=== PATIENT | male | born 1980 | race Two or more races ===

== ENCOUNTER 2021-05-04 11:40 | Inpatient (IN) | payer SELFPAY ==
[~2021-05-04] VITALS: Ht 154.9 cm; Wt 56.7 kg
--- NOTE | 2021-05-04 11:40 | NUR ---
PT BIBRA [address] C/O VOMITING OF BLOOD THIS AM. +ALCOHOL INTAKE LAST NIGHT. PT IS AAOX4, NOT IN RESPIRATORY DISTRESS, HOOKED TO MATCHBOOK MAKER, KEPT RESTED AND COMFORTABLE. WILL CONTINUE TO MONITOR.
--- NOTE | 2021-05-04 11:50 | NUR ---
SEEN AND EXAMINED BY .
--- NOTE | 2021-05-04 11:53 | NUR ---
IV LINE ESTABLISHED BLOOD DRAWN AND SENT TO LAB.
[2021-05-04] MEDS ORDERED: PANTOPRAZOLE 40 MG VIAL ONE (11:54)
[2021-05-04] MEDS ORDERED: LORAZEPAM INJ 2 MG/ML VIAL ONE (11:54)
[2021-05-04] MEDS ORDERED: ONDANSETRON HCL/PF 4 MG/2 ML VIAL ONE (11:54)
[2021-05-04] MEDS ORDERED: Thiamine 100 MG in IV D5W 50 ML IV ONE (12:00)
[2021-05-04] MEDS ORDERED: LORAZEPAM INJ 2 MG/ML VIAL IV ONE (12:00)
[2021-05-04] MEDS ORDERED: IV NS 0.9% 1,000 ML BAG IV ONE (12:00)
[2021-05-04] MEDS ORDERED: ONDANSETRON HCL/PF 4 MG/2 ML VIAL IVP ONE (12:00)
[2021-05-04] MEDS ORDERED: PANTOPRAZOLE 40 MG VIAL IV ONE (12:00)
[2021-05-04 12:06] LABS: BASOPHILS % (AUTO) 0.7 % (0.0-2.0); HEMATOCRIT 42 % (39-51); HEMOGLOBIN 14.4 g/dL (13.5-17.5); LYMPHOCYTES # (AUTO) 0.8 /CMM (0.8-4.8); LYMPHOCYTES % (AUTO) 17.6 % (20.0-44.0); MEAN CORPUSCULAR HGB CONC 34 g/dl (31.0-36.0); MEAN CORPUSCULAR VOLUME 88 fL (80-96); MONOCYTES # (AUTO) 0.2 /CMM (0.1-1.30); MONOCYTES % (AUTO) 5.6 % (2.0-12.0); NEUTROPHILS # (AUTO) 3.4 /CMM (1.8-8.9); NEUTROPHILS % (AUTO) 76.1 % (43.0-81.0); PLATELET COUNT (AUTO) 57 /CMM (150-450); RED BLOOD CELL COUNT(AUTO) 4.78 MIL/uL (4.5-6.0); WHITE BLOOD COUNT (AUTO) 4.4 K/uL (4.3-11.0)
--- NOTE | 2021-05-04 12:06 | NUR ---
FOOD TRAY PROVIDED.
[2021-05-04 12:34] LABS: CREATININE 0.8 mg/dL (0.6-1.3); POTASSIUM 3.8 mmol/L (3.5-5.1)
[2021-05-04] MEDS ORDERED: IOHEXOL-300 100 ML VIAL IV ONE (12:42)
[2021-05-04] MEDS ORDERED: CT SWABBABLE VALVE TRANS SET 1 EA INFUS.SET MC ONE (12:42)
[2021-05-04] MEDS ORDERED: IV NS 0.9% 250 ML IV ONE (12:42)
[2021-05-04 12:43] LABS: BILIRUBIN,DIRECT 2.2 mg/dL (0.0-0.2); BILIRUBIN,TOTAL 3.5 mg/dL (0.2-1.0); TOTAL PROTEIN, SERUM 9.5 g/dL (6.4-8.2)
--- NOTE | 2021-05-04 12:51 | NUR ---
PT IS WHEELED TO CT SCAN VIA [facility].
--- NOTE | 2021-05-04 13:47 | NUR ---
GOT BED 110
--- NOTE | 2021-05-04 13:59 | NUR ---
REPORT GIVEN TO RN SOON FOR NESTOR.
--- NOTE | 2021-05-04 14:20 | NUR ---
RN NOTE EGYPTIAN SPEAKING PT, A/Ox3, ARRIVED IN UNIT VIA GURNEY, PT ABLE TO STAND AND PIVOT WITH 1 PERSON ASSIST TO BED, GAIT UNSTEADY. PT BREATHING RA SPO2 93%, NO S/S OF RESP DISTRESS OR SOB, BREATHING EVEN AND UNLABORED. PT C/O 7/10 PAIN ON RT SIDE OF ABD. PT HAS LAC IV ACCESS, FLUSHED, PATENT AND INTACT, NO SIGNS OF INFECTION/INFILTRATION. PT SKIN INTACT, VITILIGO NOTE THROUGHOUT ENTIRE BODY. ALL SAFETY PRECAUTIONS IN PLACE. WILL CONT TO MONITOR. PT VITALS: TEMP 99.6, HR 113, RESP 20, BP 131/67. Addendum: 05/04/21 at 1716 by PATTIE MICHAEL RN PT PRESENTS WITH TREMORS. BEDSIDE SWALLOW EVAL CONDUCTED AND PASSED, PT HAS NO PROBLEMS SWALLOWING ICE CHIPS, WATER AND MEDS
--- NOTE | 2021-05-04 14:45 | NUR ---
RN NOTE COOLING MEASURES IN PLACE FOR PT TEMP OF 99.6 F
[2021-05-04 15:00] LABS: LYMPHOCYTES % (MANUAL) 20 % (16-48); MONOCYTES % (MANUAL) 5 % (0-11.0); NEUTROPHILS % (MANUAL) 75 (42-76)
[2021-05-04] MEDS ORDERED: ZOLPIDEM TARTRATE 5 MG TABLET PO PRN (15:00)
[2021-05-04] MEDS ORDERED: MAG HYDROX/AL HYDROX/SIMETH 30 ML UDC PO PRN (15:00)
[2021-05-04] MEDS ORDERED: MAGNESIUM HYDROXIDE 30 ML UDC PO PRN (15:00)
[2021-05-04 16:00] VITALS: BP 117/69
[2021-05-04] MEDS: ACETAMINOPHEN 325 MG TABLET PO PRN (16:05)
[2021-05-04] MEDS: CHLORDIAZEPOXIDE HCL 25 MG CAPSULE PO SCH (16:05)
--- NOTE | 2021-05-04 16:05 | NUR ---
RN NOTE PER ADVENTURE EDUCATION TEACHER SALLY MAE TO ADMIN TYLENOL 650MG FOR FEVER
[2021-05-04] MEDS: IV NS 0.9% 1,000 ML IV PRN (16:07)
[2021-05-04] MEDS: ONDANSETRON HCL/PF 4 MG/2 ML VIAL IVP PRN (17:48)
--- NOTE | 2021-05-04 18:00 | NUR ---
RN NOTE PT TEMP NOW 99.0
--- NOTE | 2021-05-04 19:10 | NUR ---
RN NOTE RECEIVED PATIENT IN BED RESTING ALERT ORIENTED X3 VERBALLY RESPONSIVE ON ROOM AIR O2:94% IV SITE IS ON LEFT AC INTACT PATENT IV HYDRATION NS 0.9% 100CC/HR RUNNING CONTINENT TO BOWEL/BLADDER,SAFETY MEASURE IMPLEMENT, CALL LIGHT WITHIN REACH,BED IN LOW POSITION AND LOCKED CONTINUE TO MONITOR.
--- NOTE | 2021-05-04 19:15 | NUR ---
GROCERY STORE MANAGER NOTE PATIENT ON BED AWAKE, ALERT AND ORIENTED X3, BREATHING EVEN AND UNLABORED, ON TELE WITH SR HR OF 75, DUE MEDICATION GIVEN ORDERED,SAFETY MEASURES OBSERVED, NEEDS MET AND ANTICIPATED, WILL CONTINUE TO MONITOR, WILL ENDORSE TO NEXT SHIFT.
[2021-05-04 20:00] VITALS: BP 116/59
[2021-05-05] VITALS: BP 127/64
[2021-05-05] MEDS: IV NS 0.9% 1,000 ML IV PRN ×2 (01:56→21:09)
[2021-05-05 04:56] VITALS: BP 136/78
[2021-05-05] MEDS: HYDROCODONE/APAP 5/325MG TABLET PO PRN ×2 (05:55→21:08)
--- NOTE | 2021-05-05 06:30 | NUR ---
RN NOTE PATIENT COMPLAINED OF ABDOMINAL PAIN UPON ASSESSMENT PATIENT ABDOMINAL DISTENDED,DID BLADDER SCAN AND SHOWED [address] BRADSHAW HE ORDERED INSERT MARTIN CATHETER AFTER INSERTION 750CC URINE COLLECTED AND PATIENT REFUSES TO HAVE MRATIN CATHETER INDWELLING CALLED DR BRADSHAW MADE AWARE.
[2021-05-05 06:33] LABS: BASOPHILS % (AUTO) 0.6 % (0.0-2.0); EOSINOPHILS % (AUTO) 0.6 % (0.0-6.0); HEMATOCRIT 36 % (39-51); HEMOGLOBIN 12.5 g/dL (13.5-17.5); LYMPHOCYTES # (AUTO) 0.7 /CMM (0.8-4.8); LYMPHOCYTES % (AUTO) 22.9 % (20.0-44.0); MEAN CORPUSCULAR HGB CONC 34 g/dl (31.0-36.0); MEAN CORPUSCULAR VOLUME 87 fL (80-96); MONOCYTES # (AUTO) 0.2 /CMM (0.1-1.30); MONOCYTES % (AUTO) 6.9 % (2.0-12.0); NEUTROPHILS # (AUTO) 2.1 /CMM (1.8-8.9); RED BLOOD CELL COUNT(AUTO) 4.17 MIL/uL (4.5-6.0); WHITE BLOOD COUNT (AUTO) 3.1 K/uL (4.3-11.0)
[2021-05-05 06:46] LABS: PLATELET COUNT (AUTO) 44 /CMM (150-450)
--- NOTE | 2021-05-05 06:59 | NUR ---
RN NOTE RECEIVED CRITICAL LAB RESULT PLATELET [address] BRADSHAW NO ORDER AT THIS TIME ENDORSE NEXT COMING SHIFT CONTINUE TO MONITOR.
[2021-05-05 07:11] LABS: THYROID STIMULATING HORMONE 3.948 uIU/mL (0.358-3.74)
--- NOTE | 2021-05-05 07:21 | NUR ---
RN NOTE ENDORSE NEXT COMING SHIFT FOR CONTINUATION OF CARE.
[2021-05-05 07:23] LABS: ALBUMIN 3.1 g/dL (3.4-5.0); BILIRUBIN,DIRECT 1.6 mg/dL (0.0-0.2); BILIRUBIN,TOTAL 2.8 mg/dL (0.2-1.0); CALCIUM, SERUM 8.5 mg/dL (8.5-10.1); CREATININE 0.8 mg/dL (0.6-1.3); MAGNESIUM 1.6 mg/dL (1.8-2.4); PHOSPHORUS 2.1 mg/dL (2.5-4.9); POTASSIUM 3.2 mmol/L (3.5-5.1); TOTAL PROTEIN, SERUM 7.5 g/dL (6.4-8.2)
[2021-05-05 08:00] VITALS: BP 107/60
[2021-05-05] MEDS ORDERED: POTASSIUM PHOSPHATE MM 15 MMOL in IV NS 0.9% 250 ML IV SCH (08:00)
--- NOTE | 2021-05-05 08:01 | NUR ---
WICKER MOLDED CANDLES OPENING NOTE PATIENT IS IN BED RESTING, PATIENT IS IN NO ACUTE DISTRESS. PATIENT IS ON TELE MONITOR READING SR 85. SAFETY PRECAUTIONS ARE ON, BED IS LOCKED IN THE LOWEST POSITION, SIDE RAILS ARE UP, CALL LIGHT WITHIN REACH, WILL CONTINUE TO MONITOR CLOSELY THROUGHOUT THE SHIFT.
[2021-05-05] MEDS: Magnesium 1GM/D5W 100ML PREMIX 100 ML IV SCH ×2 (08:19→09:56)
[2021-05-05] MEDS: CHLORDIAZEPOXIDE HCL 25 MG CAPSULE PO SCH ×2 (08:19→16:09)
[2021-05-05] MEDS: THIAMINE HCL 100 MG TABLET PO SCH (08:19)
[2021-05-05] MEDS: FOLIC ACID 1 MG TABLET PO SCH (08:19)
[2021-05-05] MEDS: MULTIVITAMINS,THERAGRAN 1 UDTAB TABLET PO SCH (08:20)
[2021-05-05] MEDS: PANTOPRAZOLE 40 MG TABLET.DR PO SCH (08:20)
[2021-05-05 08:35] LABS: EOSINOPHILS % (MANUAL) 1 % (0-4); LYMPHOCYTES % (MANUAL) 22 % (16-48); MONOCYTES % (MANUAL) 5 % (0-11.0); NEUTROPHILS % (MANUAL) 72 (42-76)
[2021-05-05] MEDS ORDERED: POTASSIUM CHLORIDE 20 MEQ TAB.PRT.SR PO ONE (09:00)
[2021-05-05] MEDS: POTASSIUM PHOSPHATE MM 7.5 MMOL in IV NS 0.9% 100 ML IV SCH ×2 (09:18→13:30)
[2021-05-05 12:00] VITALS: BP 117/67
[2021-05-05] MEDS: ONDANSETRON HCL/PF 4 MG/2 ML VIAL IVP PRN (12:17)
--- NOTE | 2021-05-05 12:17 | NUR ---
STEWARD/STEWARDESS DINING ROOM NOTE PATIENT IS FEELING NAUSEOUS WITH EMESIS PRESENT, ZOFRAN ADMINISTERED, WILL REASSESS.
[2021-05-05] MEDS ORDERED: KEY,NONCONTROL,TO KEEP IN PYXI 1 EA MC ONE (14:41)
--- NOTE | 2021-05-05 15:00 | NUR ---
LIBRARY CIRCULATION TECHNICIAN NOTE PATIENT HAD A URINE OUTPUT OF 650CC, PATIENT USED URINAL TO URINATE, NO URINARY RETENTION NOTED.
[2021-05-05 18:00] VITALS: BP 118/69
--- NOTE | 2021-05-05 18:45 | NUR ---
OB/GYN DOCTOR CLOSING NOTE PATIENT IS IN BED RESTING, PATIENT IS IN NO ACUTE DISTRESS. PATIENT IS ON TELE MONITOR READING SR 70s. SAFETY PRECAUTIONS ARE ON, BED IS LOCKED IN THE LOWEST POSITION, SIDE RAILS ARE UP, CALL LIGHT WITHIN REACH, ENDORSE PATIENT TO ANCHOR TACK PULLER NURSE FOR NESTOR.
--- NOTE | 2021-05-05 19:45 | NUR ---
MS/RN OPENING NOTE RECEIVED PATIENT RESTING IN BED. AWAKE, ALERT AND ORIENTED X 4. ABLE TO MAKE NEEDS KNOWN. PRIMARILY CHINESE SPEAKING BUT UNDERSTANDS/SPEAKS SOME SUDANESE. NO C/O PAIN AT THIS TIME. CONTINUES ON ROOM AIR WITH NO S/SX OF RESPIRATORY DISTRESS NOTED. IV ACCESS TO LEFT AC #18G INTACT AND PATENT. CONTINUES ON IVF NS @ 100ML/HR. CALL LIGHT WITHIN REACH. ASPIRATION, FALL AND SAFETY PRECAUTIONS MAINTAINED. WILL CONTINUE TO MONITOR.
[2021-05-05 20:00] VITALS: BP 113/71
--- NOTE | 2021-05-05 21:00 | NUR ---
MS/RN NOTE PATIENT WITH C/O ABDOMINAL PAIN 05/30. ADMINISTERED PRN NORCO WITH PENDING EFFECT. WILL CONTINUE TO MONITOR.
[2021-05-06] MEDS: HYDROCODONE/APAP 5/325MG TABLET PO PRN (02:25)
--- NOTE | 2021-05-06 06:30 | NUR ---
MS/RN CLOSING NOTE PATIENT CURRENTLY RESTING IN BED. AWAKE, ALERT AND ORIENTED X 4. ABLE TO MAKE NEEDS KNOWN. PRIMARILY JAPANESE SPEAKING BUT UNDERSTANDS/SPEAKS SOME BELARUSIAN. NO C/O PAIN AT THIS TIME. CONTINUES ON ROOM AIR WITH NO S/SX OF RESPIRATORY DISTRESS NOTED. IV ACCESS TO LEFT AC #18G INTACT AND PATENT. CONTINUES ON IVF NS @ 100ML/HR. CALL LIGHT WITHIN REACH. ASPIRATION, FALL AND SAFETY PRECAUTIONS MAINTAINED. WILL ENDORSE PLAN OF CARE TO ONCOMING SHIFT.
[2021-05-06 06:33] LABS: BASOPHILS % (AUTO) 0.4 % (0.0-2.0); EOSINOPHILS % (AUTO) 0.5 % (0.0-6.0); HEMATOCRIT 39 % (39-51); HEMOGLOBIN 13.3 g/dL (13.5-17.5); LYMPHOCYTES # (AUTO) 0.7 /CMM (0.8-4.8); LYMPHOCYTES % (AUTO) 17.1 % (20.0-44.0); MEAN CORPUSCULAR HGB CONC 35 g/dl (31.0-36.0); MEAN CORPUSCULAR VOLUME 88 fL (80-96); MONOCYTES # (AUTO) 0.3 /CMM (0.1-1.30); MONOCYTES % (AUTO) 6.3 % (2.0-12.0); NEUTROPHILS # (AUTO) 3.2 /CMM (1.8-8.9); NEUTROPHILS % (AUTO) 75.7 % (43.0-81.0); WHITE BLOOD COUNT (AUTO) 4.2 K/uL (4.3-11.0)
[2021-05-06] MEDS: IV NS 0.9% 1,000 ML IV PRN ×2 (06:34→22:54)
[2021-05-06 06:41] LABS: PLATELET COUNT (AUTO) 40 /CMM (150-450)
--- NOTE | 2021-05-06 06:55 | NUR ---
MS/RN NOTE LAB CALLED WITH CRITICAL LAB VALUE OF PLATELET 40. PLACED CALL TO ON-CALL MD CRUZ. AWAITING CALL BACK. WILL ENDORSE TO AM SHIFT RN.
[2021-05-06 07:21] LABS: CALCIUM, SERUM 8.8 mg/dL (8.5-10.1); CREATININE 0.6 mg/dL (0.6-1.3); MAGNESIUM 1.8 mg/dL (1.8-2.4); PHOSPHORUS 2.3 mg/dL (2.5-4.9)
--- NOTE | 2021-05-06 07:30 | NUR ---
RN OPENING NOTE PT A/Ox3/3 IN BED SEMIOWLER'S ON RA SPO2 96% NO S/S OF RESP DISTRESS OR SOB. PT DENIES PAIN AT THIS MOMENT. PT CAN AMBULATE WITH ASSISTANCE, GAIT UNSTEADY. SKIN INTACT, VITILIGO NOTED THROUGHOUT BODY. PT LAC #18 CURRENTLY INFUSING NS 100 ML/HR, FLUSHED, PATENT AND INTACT. ALL PT SAFETY PRECAUTIONS AND SZ PRECAUTIONS IN PLACE, WILL CONT TO MONITOR Addendum: 05/06/21 at 1250 by PATTIE MICHAEL RN PT TREMORS NOTED
[2021-05-06 07:40] LABS: POTASSIUM 2.8 mmol/L (3.5-5.1)
--- NOTE | 2021-05-06 08:00 | NUR ---
RN NOTE DR BRAVO AWARE OF PT PLT 40, K+ 2.8
[2021-05-06] MEDS: FOLIC ACID 1 MG TABLET PO SCH (08:34)
[2021-05-06] MEDS: CHLORDIAZEPOXIDE HCL 25 MG CAPSULE PO SCH ×2 (08:34→16:19)
[2021-05-06] MEDS: MULTIVITAMINS,THERAGRAN 1 UDTAB TABLET PO SCH (08:34)
[2021-05-06] MEDS: THIAMINE HCL 100 MG TABLET PO SCH (08:34)
[2021-05-06] MEDS: PANTOPRAZOLE 40 MG TABLET.DR PO SCH (08:34)
[2021-05-06] MEDS ORDERED: POTASSIUM PHOSPHATE MM 15 MMOL in IV NS 0.9% 250 ML IV SCH (09:00)
[2021-05-06] MEDS ORDERED: POTASSIUM CHLORIDE 20 MEQ TAB.PRT.SR PO ONE (09:00)
[2021-05-06] MEDS: POTASSIUM PHOSPHATE MM 7.5 MMOL in IV NS 0.9% 100 ML IV SCH ×2 (10:00→13:37)
--- NOTE | 2021-05-06 10:30 | NUR ---
RN N OTE PT VOMITTED APPROX 20ML. NO BLOOD NOTED. PT STABLE AND OK NOW. ASPIRATION PRECAUTIONS IN PLACE. PT ABLE TO EAT, SWALLOW AND DRINK FLUIDS WITHOUT ISSUES
[2021-05-06 11:55] VITALS: BP 116/71
--- NOTE | 2021-05-06 15:51 | NUR ---
Continuity Reader note: transportation services representative consult request received for homelessness. SS will follow up at a later time.
[2021-05-06 16:00] VITALS: BP 112/66
[2021-05-06] MEDS: ACETAMINOPHEN 325 MG TABLET PO PRN (18:10)
--- NOTE | 2021-05-06 18:38 | NUR ---
RN CLOSING NOTE PT IN STABLE CONDITION, NO CHANGES DURING SHIFT. ONE EMESIS EPISODE, NO BLOOD NOTED. NO NAUSEA CURRENTLY, TYLENOL 650MG GIVEN FOR MARCELO. ALL PT SAFETY AND SZ PRECAUTIONS IN PLACE. PT K+ REPLACED TODAY. CONT AGGRESSIVE IV FLUID HYDRATION. WILL ENDORSE NESTOR TO ONCOMING RN
[2021-05-06 20:00] VITALS: BP 110/77
--- NOTE | 2021-05-06 20:14 | NUR ---
RN NOTE PATIENT ALERT AND ORIENTEDX3, ABLE TO MAKE NEEDS KNOWN. ON ROOM AIR, O2 SAT 97%. NO SIGNS OF RESPIRATORY DISTRESS. NO SIGNS OF DISCOMFORT AT THIS TIME. WITH LEFT AC #18 RUNNING NS @ 100ML/HR. NO SIGNS OF ANY INFILTRATION. BED LOCKED AND IN LOWEST POSITION. CALL LIGHT WITHIN REACH. ALL NEEDS ANTICIPATED.
[2021-05-07 04:00] VITALS: BP 116/70
[2021-05-07 06:39] LABS: CALCIUM, SERUM 9.2 mg/dL (8.5-10.1); CREATININE 0.6 mg/dL (0.6-1.3); MAGNESIUM 1.9 mg/dL (1.8-2.4); PHOSPHORUS 3.1 mg/dL (2.5-4.9); POTASSIUM 3.7 mmol/L (3.5-5.1)
--- NOTE | 2021-05-07 06:59 | NUR ---
RN NOTE PATIENT ALERT AND ORIENTEDX3. ON ROOM AIR, O2 SAT 97%. NO SIGNS OF RESPIRATORY DISTRESS. LEFT AC #18 RUNNING NS @ 100ML/HR. NO SIGNS OF ANY INFILTRATION. ALL NEEDS ATTENDED PROMPTLY. BED LOCKED AND IN LOWEST POSITION. CALL LIGHT WITHIN REACH. WILL ENDORSE TO AM SHIFT.
[2021-05-07 07:08] LABS: BASOPHILS % (AUTO) 0.6 % (0.0-2.0); EOSINOPHILS % (AUTO) 0.8 % (0.0-6.0); HEMATOCRIT 40 % (39-51); HEMOGLOBIN 13.6 g/dL (13.5-17.5); LYMPHOCYTES # (AUTO) 0.8 /CMM (0.8-4.8); LYMPHOCYTES % (AUTO) 12.4 % (20.0-44.0); MEAN CORPUSCULAR HGB CONC 34 g/dl (31.0-36.0); MEAN CORPUSCULAR VOLUME 89 fL (80-96); MONOCYTES # (AUTO) 0.4 /CMM (0.1-1.30); MONOCYTES % (AUTO) 6.8 % (2.0-12.0); NEUTROPHILS # (AUTO) 5.1 /CMM (1.8-8.9); NEUTROPHILS % (AUTO) 79.4 % (43.0-81.0); PLATELET COUNT (AUTO) 51 /CMM (150-450); RED BLOOD CELL COUNT(AUTO) 4.49 MIL/uL (4.5-6.0); WHITE BLOOD COUNT (AUTO) 6.4 K/uL (4.3-11.0)
--- NOTE | 2021-05-07 07:30 | NUR ---
MS RN AM NOTE PT IN BED, AOX3, SEMIFOWLER'S, ON RA O2 SAT AT 97%, NO S/S OF RESP DISTRESS OR SOB. RESPIRATION UNLABORED. PT DENIES PAIN AT THIS MOMENT. SLIGHT TREMORS NOTED, PT LAC #18 CURRENTLY INFUSING NS 100 ML/HR, SITE CLEAR. PT CAN AMBULATE WITH ASSISTANCE, GAIT UNSTEADY. SKIN INTACT, VITILIGO NOTED THROUGHOUT BODY. DISCUSSED POC, VERBALIZED UNDERSTANDING. ALL PT SAFETY PRECAUTIONS AND SZ PRECAUTIONS IN PLACE, WILL CALL LIGHT WITHIN REACH, WILL CONT TO MONITOR
[2021-05-07] MEDS: PANTOPRAZOLE 40 MG TABLET.DR PO SCH (07:58)
[2021-05-07 08:00] VITALS: BP 124/70
[2021-05-07] MEDS: FOLIC ACID 1 MG TABLET PO SCH (08:00)
[2021-05-07] MEDS: CHLORDIAZEPOXIDE HCL 25 MG CAPSULE PO SCH (08:00)
[2021-05-07] MEDS: THIAMINE HCL 100 MG TABLET PO SCH (08:00)
[2021-05-07] MEDS: MULTIVITAMINS,THERAGRAN 1 UDTAB TABLET PO SCH (08:00)
[2021-05-07] MEDS ORDERED: THIA100T88 PO (08:19)
[2021-05-07] MEDS ORDERED: FOLI0.8T3 PO (08:19)
--- NOTE | 2021-05-07 09:30 | NUR ---
RN NOTES DUE MEDS GIVEN
[2021-05-07 12:00] VITALS: BP 107/71
--- NOTE | 2021-05-07 12:42 | NUR ---
"SS Consult: SS Consult requested for ETOH & homelessness. The pt. is a 40 year old Swazi male. SW met with pt. bedside & pt. is A&O X 4. Pt. stated that he has been homeless for about 4-5 months since arriving to [place] from [place] and is an also alcoholic (drinks vodka, tequila & beer as much as he can afford). SW offered pt. rehab placement. Pt. stated that he will have [facility] in 3 weeks and will seek Tx for ETOH abuse then. SW provided pt. with Addiction resources and pt. accepted them. Patient states he has a 14-year-old son here who he wanted custody of. Pt. states most of his family is in [place]. Pt.s mood is anxious. Pt. stated he has never seen a psychiatrist or received mental health Tx. Patient states he experiences intermittent auditory and visual hallucinations that tell him to drink or get in fights. Pt. states he phu with the voices by listening to music and drinking. SW educated pt. regarding positive coping mechanisms and encouraged him to seek psychiatric/ mental health Tx. Pt. is agreeable. SW provided pt. with mental health resources and pt. accepted them. Plan: Pt. stated he has been living at [facility] [[address] [facility] [address]; [phone]] for the last 3 months and just called as his belongings are there and they will take him back. Pt. wants to return there once discharged. SW offered pt. bus pass and pt. stated busses are still free and does not need bus pass. Patient signed homeless waiver & it was placed in the pt.s chart. STEPH provided pt. with the following homeless resources, addiction resources & mental health resources & pt. accepted them: Substance Abuse resources provided included: [facility] Substance Abuse Self-Helpline (SAS) ; CRI -HELP [address] [facility]. [place] [phone] ; [facility] [address] [facility] [address] ; [facility] [address] [facility] [address] ; [facility] [address] [facility] [address] ; [facility] Treatment [facility] [address] Ron Thompsonshawna [facility] [address] ; [facility] [address] [facility] [phone] ; [facility] Substance Abuse Helpline([facility] ; [facility] ; [facility]; [facility]; C[facility]Help [place]; [facility] Ron [place]; [facility]; [place] Spe[facility] [place]; [facility]; [facility], [facility]. [place]; Alcoholics Anonymous -SFV; An-Lyyi-Klilqdn ; Marijuana Anonymous -SFV; Narcotics Anonymous www.na.org; Year-round shelters: [facility] [place] [address] [place] [address] ; [facility] [place] [address] [place] [address]; [place] [facility] Xegtrsm9902 [facility] [id number] Winter Shelters: Radha [place] Provider: [facility] Address: [address] [place], [address] # of Beds: 47 Population Served: [facility] 6 | [facility] Adalgisa Zamora Rhianna Provider: [facility] Address: [address] [place] [address], [address] # of Beds: 66 Population Served: Farida Hernándezise Rhianna Provider: [facility] Address: [id number] [place] [address], [address] # of Beds: 56 Population Served: Coed [place] Provider: /[facility]. [facility] Address: [address] [facility], [address] # of Beds: 49 Population Served: Coed SPA 8 | [facility] Provider: [facility] Address: [address] [facility] [place], [address] # of Beds: 37 Population Served: Coed Hygiene: [facility]: [address] John [address] [place] ; [facility] [address] [facility] ; [facility] 5845 [facility] . Food Resources: [place] [facility] at [facility]- 5700 [facility]; Meet Each Need with Dignity ([facility]) [address] [facility]; [facility] Food Pantry 4392 [facility]; [facility] 8576 [facility]. Mental Health resources provided: [facility] [address] [place], [place] [id number] ; [facility] Mental Health [employer] [place] [address] [facility] [address], [place], [place] [id number] ; Tana Ramos [facility] Mental Health Urgent [facility] Center [address] [place] [address] ; [facility] [address] [place], [place] [id number] Healthcare Clinics: [facility] [address] [facility], [address] [place]. [place] ; [facility] [address] [facility] [address] [place] [address]; [facility] [address] [facility]. [place] [phone] Counseling--Outpatient [facility] [address], [address] [place], [place] [address] (Specializes in in-depth psychotherapy for emotional distress: anxiety, depression, interpersonal conflicts, life transitions, childhood abuse) [facility] [address] [place] [address] (Assist with solving problem marital difficulties, separation & divorce, aging parents, & grief, chronic & terminal illness) [facility] [address] [place] [address] (Deal with loss & grief, anxiety, marital difficulties) Homebound/Mental Health Services [address] [place] [address] (Provide in-home mental services to people who are incapable of leaving their homes) [facility] of the Elderly Senior Service/Resource Center [address] [place] [address] [facility] [address] [place] [address] PSYCHIATRIC OUTPATIENT SERVICES [facility] Partial Hospitalization and Intensive Outpatient Program (Managed Care and [place] Only)[address] [address] Vaugh[address]. [facility] [phone] [facility] Partial Hospitalization and Outpatient [id number] [address] [place], [place] [phone] [facility] Partial Hospitalization and Outpatient [id number] [facility] [place], [place] [phone] RON [facility] [place] [id number] [address] [place], [place] [phone] [facility] Partial Hospitalization and Outpatient [id number] Em[facility] Ron Weems [phone] "
--- NOTE | 2021-05-07 14:40 | NUR ---
NOTES PATIENT DISCHARGED TO [facility] [[address] [address] [place] [address]; [phone]] PER MD IN STABLE CONDITION. PROVIDED DC INSTRUCTIONS, HEALTH INSTRUCTIONS AND MED RECON LIST/PRESCRIPTION. PATIENT TO FOLLOW UP WITH PCP IN 1 WEEK. LEFT AC IV ACCESS REMOVED, PRESSURE APPLIED, NO BLEEDING, DRESSING IN PLACE. BELONGINGS CHECKED AND RETURNED, ALL PAPERWORKS SIGNED, ACCOMPANIED BY [place] TO LOBBY VIA WHEELCHAIR, WILL TAKE BUS GOING TO HIS HALF-WAY.
== END 2021-05-07 14:43 | disposition home or self-care (01) | DRG 897 ==
LOC: ER 11:42 → TELE1 14:02 → MEDSG1 05-05 08:11
PROVIDERS: ADMIT Internal Medicine; ATTEND Nurse Practitioner Acute Care
DX: F10.239 Alcohol dependence with withdrawal, unspecified (principal); E87.1 Hypo-osmolality and hyponatremia; E87.2 Acidosis; K92.0 Hematemesis; E86.1 Hypovolemia; Z59.0 Homelessness; Z20.822 Contact with and (suspected) exposure to COVID-19; E83.39 Other disorders of phosphorus metabolism; E83.42 Hypomagnesemia; E87.6 Hypokalemia; R74.01 Elevation of levels of liver transaminase levels; R55 Syncope and collapse; Y90.9 Presence of alcohol in blood, level not specified
CPT/HCPCS: 36415; 80048-TC; 80061-TC; 80076-TC; 82962-TC; 83690-TC; 83735-TC; 84100-TC; 84443-TC; 85025-TC; 85730-TC; 86850-TC; 87081-TC; 97112-TC; 97116-TC; 97530-TC; C9113; G0378; J2060; J2405; J3411; J3475; J3490; J7030; J7050; J7060; Q9967; U0003